=== PATIENT | female | born 1990 | race Two or more races ===

== ENCOUNTER → 2019-06-18 | Outpatient (CLI) | payer OTHER | END | disposition home or self-care (01) | LOC: PRENATAL 15:30 | DX: Z36.89 Encounter for other specified antenatal screening (principal); O35.3XX1 Maternal care for (suspected) damage to fetus from viral disease in mother, fetus 1; O99.212 Obesity complicating pregnancy, second trimester; Z3A.23 23 weeks gestation of pregnancy; O34.219 Maternal care for unspecified type scar from previous cesarean delivery ==